=== PATIENT | female | born 1950 | race Caucasian/White ===

== ENCOUNTER 2024-03-22 08:31 | Outpatient (CLI) | payer OTHER, SELFPAY ==
--- NOTE | 2024-03-22 08:35 | CT_ITS ---
WS: [id number] LDCT LUNG CANCER SCREENING HISTORY: HX OF TOBACCO USE TECHNIQUE: Axial imaging performed from the apices to 1 cm below the costophrenic angles. Coronal and sagittal reformats are submitted with axial MIP series. All CT scans at [facility] use at least one of these dose optimization techniques: automated exposure control; mA and/or kV adjustment per patient size (includes targeted exams where dose is matched to clinical indication); or iterativ e reconstruction. DLP: 63.30 mGy.cm DIvol: Mean CTDIvol: 1.20 (mGy) COMPARISON: None available. Diagnostic quality: Mild breathing motion artifact. Lungs: Moderate centrilobular emphysema. Mild hazy attenuation throughout both lungs. Biapical pleura l thickening and scarring. Very small subpleural nodules and tags are identified. There are a few gra nulomata. Mild motion artifact is causing some distortion and compromise of the quality. Heart: Normal size heart. Mild increase in pericardial fat.. Other findings: Moderate atherosclerosis thoracic aorta. Small mediastinal and hilar lymph nodes. Sma ll hiatal hernia. Prior cholecystectomy. No adrenal mass. Advanced thoracic spondylosis. Age-indeterm inate compression deformities at T4, T11 and T12. CT/CT lung screening [id number] IMPRESSION: LUNG-RADS: 2-Benign Appearance or Behavior FOLLOW UP: 12 Month: Continue annual screening with LDCT OTHER FINDINGS (S MODIFIER): None.
== END 2024-03-22 08:32 | disposition home or self-care (01) ==
LOC: RAD 08:31
PROVIDERS: PCP Internal Medicine; Visit Provider Internal Medicine
DX: Z12.2 Encounter for screening for malignant neoplasm of respiratory organs (principal); Z87.891 Personal history of nicotine dependence; J43.2 Centrilobular emphysema; J98.4 Other disorders of lung; J84.10 Pulmonary fibrosis, unspecified; K44.9 Diaphragmatic hernia without obstruction or gangrene; M47.814 Spondylosis without myelopathy or radiculopathy, thoracic region; M43.8X4 Other specified deforming dorsopathies, thoracic region; Z98.890 Other specified postprocedural states
CPT/HCPCS: 71271

== ENCOUNTER → 2024-05-19 13:20 | Outpatient (BNVA) | payer MEDICARE, OTHER, SELFPAY | PROVIDERS: PCP Internal Medicine; Visit Provider Nurse Practitioner Family | DX: I10 Essential (primary) hypertension (principal); E55.9 Vitamin D deficiency, unspecified | CPT/HCPCS: 80053; 80061; 82306; 84443 ==

== ENCOUNTER → 2024-07-20 10:40 | Outpatient (BNVA) | payer MEDICARE, OTHER, SELFPAY | PROVIDERS: PCP Internal Medicine; Visit Provider Nurse Practitioner Family | DX: E03.9 Hypothyroidism, unspecified (principal) | CPT/HCPCS: 84443 ==

== ENCOUNTER → 2024-08-03 09:49 | Outpatient (BNVA) | payer MEDICARE, OTHER, SELFPAY | PROVIDERS: PCP Internal Medicine; Visit Provider Internal Medicine | DX: R07.9 Chest pain, unspecified (principal) | CPT/HCPCS: 93005; 99204 ==

== ENCOUNTER → 2024-09-09 10:49 | Outpatient (BNVA) | payer MEDICARE, OTHER, SELFPAY | PROVIDERS: PCP Nurse Practitioner Family; Visit Provider Nurse Practitioner Family | DX: I10 Essential (primary) hypertension (principal); E03.9 Hypothyroidism, unspecified | CPT/HCPCS: 84443 ==

== ENCOUNTER → 2024-12-22 08:05 | Outpatient (BNVA) | payer MEDICARE, OTHER, SELFPAY | PROVIDERS: PCP Nurse Practitioner Family; Visit Provider Nurse Practitioner Family | DX: I10 Essential (primary) hypertension (principal) | CPT/HCPCS: 80053; 80061; 84443 ==

== ENCOUNTER → 2025-02-01 14:10 | Outpatient (BNVA) | payer MEDICARE, OTHER, SELFPAY | PROVIDERS: PCP Nurse Practitioner Family; Visit Provider Internal Medicine | DX: I10 Essential (primary) hypertension (principal); E78.5 Hyperlipidemia, unspecified; F17.210 Nicotine dependence, cigarettes, uncomplicated; R06.02 Shortness of breath; R07.9 Chest pain, unspecified | CPT/HCPCS: 99214 ==

== ENCOUNTER → 2025-02-03 09:36 | Outpatient (BNVA) | payer MEDICARE, OTHER, SELFPAY | PROVIDERS: PCP Nurse Practitioner Family; Visit Provider Nurse Practitioner Family | DX: E03.9 Hypothyroidism, unspecified (principal) | CPT/HCPCS: 84443 ==

== ENCOUNTER 2025-02-04 10:06 | Outpatient (CLI) | payer MEDICARE, OTHER, SELFPAY ==
--- NOTE | 2025-02-04 10:10 | MM_ITS ---
WS: [id number] BILATERAL 3D TOMOSYNTHESIS DIGITAL SCREENING MAMMOGRAPHY WITH CAD CLINICAL INFORMATION: SCREENING HISTORY: Screening mammogram. No current complaints. COMPARISON: None available TECHNIQUE: Bilateral CC and MLO views. FINDINGS: Scattered fibroglandular densities bilaterally. No suspicious focal mass, asymmetry, calcifications, or architectural distortion. No evidence of malignancy. A few coarse benign calcifications. Vascular calcification. MM/MM scr tomosynthesis [id number] IMPRESSION: DENSITY: There are scattered areas of fibroglandular density. BI-RADS: 2 - Benign. FOLLOW UP: 1 Year Follow-up Recommend return to annual screening mammography.
== END 2025-02-04 10:07 | disposition home or self-care (01) ==
LOC: RAD 10:08
PROVIDERS: PCP Internal Medicine; Visit Provider Internal Medicine
DX: Z12.31 Encounter for screening mammogram for malignant neoplasm of breast (principal); R92.323 Mammographic fibroglandular density, bilateral breasts; R92.1 Mammographic calcification found on diagnostic imaging of breast
CPT/HCPCS: 77063; 77067

== ENCOUNTER 2025-03-14 14:05 | Outpatient (CLI) | payer MEDICARE, OTHER, SELFPAY ==
--- NOTE | 2025-03-14 15:00 | USCV_ITS ---
Saadia Cruz Age: 74 Gender: F : 1950 Exam Date: 03/14/2025 14:56 Ordering Phys: Ty Thakur M.D ([email or web address]) Technologist: MARY Exam Location: [facility] Indication: CP, SoB BP: 108 / 66 HR: 59 Rhythm: Sinus Technical Quality: Adequate MEASUREMENTS (Male / Female) Normal Values 2D ECHO LV Diastolic Diameter PLAX 5.2 cm 4.2 - 5.9 / 3.9 - 5.3 cm IVS Diastolic Thickness 0.8 cm 0.6 - 1.0 / 0.6 - 0.9 cm IVS Systolic Thickness 1.7 cm LVPW Diastolic Thickness 1.1 cm 0.6 - 1.0 / 0.6 - 0.9 cm LVPW Systolic Thickness 1.6 cm LVOT Diameter 2.1 cm LV Ejection Fraction 2D Teich 67.2 % LV Ejection Fraction MOD 4C 70.2 % LV Ejection Fraction MOD 2C 68.2 % LV Ejection Fraction 2C AL 69.3 % LA Diameter 2.9 cm RA Systolic Volume 4C AL 29.9 ml RA Systolic Volume 4C MOD 29.2 ml LA Sys Volume AL 32.3 cm cubed LA Sys Volume Index AL 17.4 cm cubed/m squared Aorta at Sinotubular Diameter 2.5 cm IVC Diameter 1.6 cm M-MODE LA Ao Ratio MM 1.1 AV Cusp Separation MM 1.2 cm DOPPLER AV Peak Velocity 186.0 cm/s LVOT Peak Velocity 107.0 cm/s AV Area Cont Eq vti 1.9 cm squared AV Area Cont Eq pk 1.9 cm squared MV Peak Velocity 107.0 cm/s MV Area PHT 2.8 cm squared Mitral E to A Ratio 0.9 TV Peak E Velocity 69.0 cm/s PV Peak Velocity 91.0 cm/s FINDINGS Left Ventricle Left ventricle is normal in size. LV systolic function is normal with EF of 60 to 65%. No regional wall abnormalities are seen. Grade 1 diastolic dysfunction. Right Ventricle Normal in size and function Right Atrium Normal in size Left Atrium Normal in size Mitral Valve Structurally normal mitral valve. Mild mitral regurgitation. Aortic Valve Aortic valve is thickened. Mild aortic stenosis aortic valve area 1.8 cm squared and mean gradient of 8 mmHg. Tricuspid Valve Mild tricuspid regurgitation. Insufficient TR jet to evaluate RVSP. Pulmonic Valve Not well visualized Pericardium Normal Aorta Normal in size IVC Apepars to be normal CONCLUSIONS LV systolic function is normal with EF of 60-65% Grade 1 diastolic dysfunction Mild mitral regurgitation Mild aortic stenosis Mild tricuspid regurgitation No comparison studies are available. Ty Thakur MD (Electronically Signed) Final Date: 18 March 2025 10:22 S
== END 2025-03-14 14:06 | disposition home or self-care (01) ==
LOC: RAD 14:06
PROVIDERS: PCP Internal Medicine; Visit Provider Internal Medicine
DX: R07.9 Chest pain, unspecified (principal); R06.02 Shortness of breath; R93.1 Abnormal findings on diagnostic imaging of heart and coronary circulation; I34.0 Nonrheumatic mitral (valve) insufficiency; I35.8 Other nonrheumatic aortic valve disorders; I35.0 Nonrheumatic aortic (valve) stenosis; I07.1 Rheumatic tricuspid insufficiency
CPT/HCPCS: 93306

== ENCOUNTER 2025-03-21 18:13 | Emergency (ER) | payer MEDICARE, OTHER, SELFPAY ==
--- OUTSIDE RECORDS SUMMARY | 2024-11-18 05:00 | XMS_ITS ---
Author Organization [facility] Address [address] [place] [address] Care Team Providers Care Supervisor Of Instruction Name Role Phone Seven Andujar Primary Care Provider REASON FOR VISIT 4 MONTH F/U Encounters Encounter Location Date Provider Diagnosis [facility] [address] [phone] 11/18/2024 Seven Andujar Plan Of Treatment Next Appt Details Provider Name:Seven Andujar, 06/03/2025 11:00:00 AM, [address], [phone], Progress Notes * TE BRAVODOB:1950 (74 yo F)Acc No.[id number]:11/18/2024 Progress Notes Patient: TE DE SANTIAGO Provider: Coleen Andujar MD :1950 A ge:73 Y S ex:Female Date:11/18/2024 Address:[address] [place] [address] MARJAN FELIZ [id number] Subjective: * Chief Complaints: * 4 MONTH F/U Care Plan Details* * Electronic signature of Benton Andujar MD on 03/21/2025 at 06:22 PM CDT Sign off status: Pending * Provider: Coleen Andujar MD Date: 11/18/2024 Generated for Miguel ng/Faxing/eTransmitting on: 03/21/2025 06:22 PM CDT
--- OUTSIDE RECORDS SUMMARY | 2024-11-19 05:00 | XMS_ITS ---
Author Organization [facility] Address [address] [place] [address] Care Team Providers Care Vp Data Name Role Phone Seven Andujar Primary Care Provider Allergies Allergen (clinical drug ingredient) Drug/Non Drug Allergy documented on EMR Reaction Allergy Type Onset Date Status Substance with sulfonamide structure and antibacterial mechanism of action (substance) Sulfa Antibiotics Unknown Drug Allergy Active REASON FOR VISIT 4 MONTH F/U Medications Medication SIG (Take, Route, Frequency, Duration) Notes Start Date End Date Status Rosuvastatin Calcium 10 MG Tablet 1 tablet Orally Once a day; Duration: 90 days Active Omeprazole 40 MG Capsule Delayed Release 1 capsule 30 minutes before morning meal Orally Once a day; Duration: 90 days Active Anoro Ellipta 62.5-25 MCG/ACT Aerosol Powder Breath Activated 1 puff Inhalation Once a day; Duration: 90 days 07/12/2024 07/07/2025 Not-Taking Levothyroxine Sodium 150 MCG Tablet 1 tablet in the morning on an empty stomach Orally Once a day; Duration: 90 days Active hydroCHLOROthiazide 12.5 MG Capsule 1 capsule in the morning Orally Once a day; Duration: 90 days Active traZODone HCl 100 MG Tablet 1 tablet at bedtime Orally Once a day; Duration: 90 days Not-Taking Magnesium Citrate 100 MG Tablet 4 tablets Orally daily Active Social History Tobacco Use: Social History Observation Description Date Details (start date - stop date) Current Smoker NA - NA Social History Depression Screening Social Info Question Answer Notes depression screening findings Findings Negative (0 -4) 07/12/24 PHQ-9 Little interest or p alicia in doing things Not at all Feeling down, depressed, or hopeless Not at all Trouble falling or staying asleep, or sleeping t oo much Not at all Feeling tired or having little energy Not at all Poor appetite or overeating Not at all Feeling bad about yourself, or that you are a failure, or have let yourself or your family down Not at all Trouble concentrating on thi ngs, such as reading the newspaper or watching television Not at all Moving or speaking so slowly that other people could have noticed. Or the opposite ? being so fidgety or restless that you have been moving around a lot more than usual Not at all Thoughts that you would be b alivia off , or of hurting yourself in some way Not at all Total Score 0 Tobacco Use: Social Info Question Answer Notes Tobacco Control (Standard) Tobacco use: Current smoker How often do you smoke cigarettes? Every day How many cigarettes a day do you smoke? 07-21 Section Notes: CIME Dep/tob 07/12/24 Encounters Encounter Location Date Provider Diagnosis [facility] [address] [place] [phone] 11/19/2024 Seven Andujar Plan Of Treatment Medication Medication Name Sig Start Date Stop Date Notes Rosuvastatin Calcium 10 MG Tablet 1 tablet Orally Once a day; Duration: 90 days Next Appt Details Provider Name:Seven Andujar, 06/03/2025 11:00:00 AM, [address] [place] [address], [phone], Progress Notes * TE BRAVO JayleenDOB:1950 (74 yo F)Acc No.[id number]:11/19/2024 Progress Notes Patient: TE DE SANTIAGO Provider: oCleen Andujar MD :1950 A ge:73 Y S ex:Female Date:11/19/2024 [phone] Subjective: * Chief Complaints: * 4 MONTH F/U * HPI: P atient Complaints: Patient here for follow up - feels good - moved from [place] and needs updated handicap placard for [place]. * Medical History: Thyroid problems Medical History Verified * Surgical History: carpal tunnel release both wrist left hip replacement right hip replacement back surgery left knee replacement right knee replacement Surgical History verified. * Hospitalization/Major Diagno stic Procedure: No Hospitalization Documented. Hospitalization Verified. * Family History: F ather: , heart. M other: , type II diabetes. F amily History Verified.. * Social History: T obacco Use: T obacco Control (Standard) T obacco use: C urrent smoker H ow often do you smoke cigarettes? E very day H ow many cigarettes a day do you smoke? 1 1-20 D epression Screening: P HQ-9 L ittle interest or pleasure in doing things?Not at all F eeling down, depressed, or hopeless N ot at all T rouble falling or staying asleep, or sleeping too much N ot at all F eeling tired or having little energy N ot at all P oor appetite or overeating N ot at all F eeling bad about yourself, or that you are a failure, or have let yourself or your family down N ot at all T rouble concentrating on things, such as reading the newspaper or watching television N ot at all M oving or speaking so slowly that other people could have noticed. Or the opposite ? being so fidgety or restless that you have been moving around a lot more than usual N ot at all T houghts that you would be better off , or of hurting yourself in some way N ot at all T otal Score 0 Depression screening findings F indings N egative (0-4) 07/12/24 S ocial History Verified. C MIKAEL Dep/tob 07/12/24. * Medications: T akingMagnesium Citrate 100 MG Tablet 4 tablets Orally daily Rosuvastatin Calcium 10 MG Tablet 1 tablet Orally Once a day hydroCHLOROthiazide 12.5 MG Capsule 1 capsule in the morning Orally Once a day Levothyroxine Sodium 150 MCG Tablet 1 tablet in the morning on an empty stomach Orally Once a day Omeprazole 40 MG Capsule Delayed Release 1 capsule 30 minutes before morning meal Orally Once a day Taking Magnesium Citrate 100 MG Tablet 4 tablets Orally daily Taking Rosuvastatin Calcium 10 MG Tablet 1 tablet Orally Once a day Taking hydroCHLOROthiazide 12.5 MG Capsule 1 capsule in the morning Orally Once a day Taking Levothyroxine Sodium 150 MCG Tablet 1 tablet in the morning on an empty stomach Orally Once a day Taking Omeprazole 40 MG Capsule Delayed Release 1 capsule 30 minutes before morning meal Orally Once a day Not-TakingtraZODone HCl 100 MG Tablet 1 tablet at bedtime Orally Once a day Anoro Ellipta 62.5-25 MCG/ACT Aerosol Powder Breath Activated 1 puff Inhalation Once a day , stop date 07/07/2025Medication List reviewed and reconciled with the patientNot-Taking traZODone HCl 100 MG Tablet 1 tablet at bedtime Orally Once a day Not-Taking Anoro Ellipta 62.5-25 MCG/ACT Aerosol Powder Breath Activated 1 puff Inhalation Once a day , stop date 07/07/2025Medication List reviewed and reconciled with the patient * Allergies: S ulfa AntibioticsyesAllergies Verified. Plan: * Treatment: * Preventive Medicine: Fall Risk Assessment: F all Risk Assessment Fall Risk Assessment N o falls in the past year None Screenings: B REAST CANCER SCREENING: Date of most recent screenin 04/12/2022 C ERVICAL CANCER SCREENING: Date of the last PAP Smear : H ysterectomy 40 years ago C OLORECTAL CANCER SCREENING: Date of last colonoscopy 0 01/18/2022 D EPRESSION SCREENING: Date of most recent screenin 09/11/2023 V ACCINATIONS: Influenza vaccinations: h ave been completed yearly Billing Information: * Procedure Codes: Care Plan Details* * Electronic signature of Benton Andujar MD on 03/21/2025 at 06:22 PM CDT Sign off status: Pending * Provider: Coleen Andujar MD Date: 0 11/19/2024 Generated for Miguel dejesus/Pato/Yulia on: 0 03/21/2025 06:22 PM CDT
--- NOTE | 2025-03-21 18:14 | XRR_ITS ---
PROCEDURE INFORMATION: Exam: XR Right Humerus Exam date and time: 03/21/2025 6:23 PM Age: 74 years old Clinical indication: Injury or trauma; Fall; Blunt trauma (contusions or hematomas); Arm, upper; Right TECHNIQUE: Imaging protocol: Radiologic exam of the right humerus. Views: 2 or more views. COMPARISON: CT lung screening [id number] 03/22/2024 8:49 AM FINDINGS: Bones/joints: There is diffuse osteopenia. There is a comminuted fracture through the proximal humerus with a dominant transverse component through the humeral neck. There appears to be mild anterior and medial displacement of the distal fracture fragment. There also appear to be subtle fracture lines extending into the humeral head, suboptimally evaluated on these radiographs. There are degenerative changes involving the acromioclavicular joint. Soft tissues: There is soft tissue edema within the upper arm XR/[place] [id number] IMPRESSION: Acute mildly displaced comminuted proximal humeral fracture with dominant transverse component through the humeral neck as described. Dedicated shoulder radiographs may be helpful for further evaluation.
--- OUTSIDE RECORDS SUMMARY | 2025-03-21 18:21 | XMS_ITS | Continuity of Care Document ---
Author Organization [facility]. If a dditional information is needed, contact Health Information Management at [phone] Address [address] [place] [address] Phone Care Team Providers Care Fashion Model Name Role Phone Unavailable Unavailable Unavailable Unavailable Unavailable Unavailable Unavailable Unavailable Unavailable Unavailable Unavailable Unavailable Unavailable Unavailable Unavailable Unavailable Unavailable Unavailable Problems Bronchospasm Onset:21-Nov-2019 Dyspnea Onset:21-Nov-2019 Fall on same level Onset:23-Aug-2018 Contusion of hip Onset:23-Aug-2018 Mental Status Cognitive function finding 21-Nov-2019 Allergies and Adverse Reactions Sulfa(Sulfonamide Antibiotic s)(Allergy) Onset: 20-Nov-2019 Reaction:HIVES, ITCHING Medications azithromycin 500 MG Oral Tablet;500 MILLIGRAM PO DAILY Start:22-Nov-2019 Comments:500 MG PO DAILY predniSONE 20 MG Oral Tablet;40 MILLIGRAM PO DAILY Start:22-Nov-2019 Comments:40 MG PO DAILY 12 HR guaiFENesin 1200 MG Extended Release Oral Tablet [Mucinex];1200 MILLIGRAM PO BID Start:22-Nov-2019 Comments:1200 MG PO BID VENTOLIN HFA;1 PUFF INH RTQ6 H PRN Start:22-Nov-2019 Comments:1 PUFF INH RTQ6H PRN As Needed for WHEEZING / SHORTNESS OF BREATH escitalopram 10 MG Oral Tablet;10 MILLIGRAM PO DAILY Start:23-Aug-2018 Comments:10 MG PO DAILY simvastatin 20 MG Oral Tablet;20 MILLIGRAM PO BEDTIME Start:23-Aug-2018 Comments:20 MG PO BEDTIME levothyroxine sodium 0.15 MG Oral Tablet [Levoxyl];150 MICROGRAM PO DAILY Start:23-Aug-2018 Comments:150 MCG PO DAILY escitalopram 10 MG Oral Tablet [Lexapro];10 MILLIGRAM ORAL DAILY Quantity:1 Vickie Wilma I DISC INSPECTOR Status:Discontinued Comments:[id number] Protonix;40 MILLIGRAM ORAL DAILY Quantity:1 Vickie Wilma I DISC INSPECTOR Status:Discontinued Comments:[id number] Administration Instructions:FORMULARY INTERCHANGE FOR ACIPHEX, CHLOE, NEXIUM, PREVACID,PRILOSEC, ZEGERIDSwallow whole, do not chew or crush 12 HR guaiFENesin 600 MG Extended Release Oral Tablet [Mucinex];1200 MILLIGRAM ORAL BID Quantity:2 Vickie Wilma I DISC INSPECTOR Status:Discontinued Comments:[id number] levothyroxine sodium 0.15 MG Oral Tablet [Synthroid];0.15 MILLIGRAM ORAL DAILY@0600 Quantity:1 Vickie Wilma I DISC INSPECTOR Status:Discontinued Comments:[id number] simvastatin 40 MG Oral Table t [Zocor];20 MILLIGRAM ORAL BEDTIME Quantity:1 Vickie Wilma I DISC INSPECTOR Status:Discontinued Comments:[id number] acetaminophen 325 MG Oral Tablet;650 MILLIGRAM ORAL Q4H PRN Quantity:2 Vickie Wilma I DISC INSPECTOR Status:Discontinued Comments:[id number] ondansetron 2 MG/ML Injectable Solution [Zofran];4 MILLIGRAM INTRAVEN. Q6H PRN Quantity:1 Gold Hensley MD Status:Discontinued Comments:[id number] Administration Instructions:FOR IVP*UNDILUTED OVER 2-5 MIN sodium chloride 9 MG/ML Injectable Solution Vickie Wilma I DISC INSPECTOR Status:Discontinued 250 ML sodium chloride 9 MG/ML Injection;[id number] Vickie Wilma I DISC INSPECTOR Status:Discontinued Comments:[id number] cefTRIAXone 1000 MG Injection;1 GRAM INTRAVEN. Q24H Quantity:1 Vickie Wilma I DISC INSPECTOR Status:Discontinued Comments:Provider Administration Instructions:FORMULARY INTERCHANGE FOR CLAFORANDilute vial with 10 mL Sterile Water for Injection. Withdrawcontents of vial and push over 3-5 minutes. Use immediatelyafter reconstitution. CHLORHEXIDINE BATH 1 EACH EACH;1 EACH TOPICAL ASDIR Quantity:1 FUNZA Status:Discontinued Comments:[id number] Administration Instructions:DAILY CHG BATH FOR ALL ADULT INPATIENTS WITH CENTRAL LINES(INCLUDING PICC LINES), DIALYSIS CATHETERS, MIDLINES, ORACCESSED PORTS. Not dispensed by Pharmacy [id number] 60 ACTUAT albutero l 0.09 MG/ACTUAT Metered Dose Inhaler [Ventolin];1 PUFF INHALATION THERAPY RTQ6H PRN Quantity:1 Vickie Wilma I DISC INSPECTOR Status:Discontinued Comments:[id number] Administration Instructions: For COVID-19 PUI (person under investigation) and/or aconfirmed case, store open inhalers in the patient's room anca locked cabinet. Dispose of inhaler in black bin. If black bin islocated outside of the patient's room, place the inhaler anca sealable plastic ziplock type bag and move to theappropriate black bin in its current location. DO NOT RETURN OPENED INHALERS TO PHARMACY. povidone-iodine 100 MG/ML Medicated Pad;1 EACH NASAL BID Quantity:1 FUNZA Status:Discontinued Comments:[id number] albuterol 0.833 MG/ML / ipratropium bromide 0.167 MG/ML Inhalation Solution;3 MILLILITER NEBULIZATION RTQ6H PRN Quantity:1 Vickie Wilma I DISC INSPECTOR Status:Discontinued Comments:[id number] Social History Smoking Status Smokes tobacco daily Recorded: 21-Nov-2019 Smokes tobacco daily Recorded: 23-Aug-2018
--- OUTSIDE RECORDS SUMMARY | 2025-03-21 18:21 | XMS_ITS | Continuity of Care Document ---
Author Name [facility] Organization [facility] Care Team Providers Care Maintenance Scheduler Name Role Phone [facility] Unavailable Unavailable Medications Combined list of outpatient medications from Department of Defense and Veterans Affairs facilities.Medications provided include 1) outpatient medications from the last 15 months, and 2) patient-reported medications. Medication Details Route Status Patient Instructions Prescription Expires Prescription Number Last Dispense Date Ordering Provider Order Date Order Qty Source albuterol 90 mcg inhaler [8.5g] See Instruct ry, 0, # 8 g, 1 total refill(s ), Hard Stop Complet ed 05/25/2024 4 2023 8.5 Ambulat ory Pharmac y fluticasone /umeclidini um/vilanter ol 100 mcg-62.5 mcg-25 mcg/inh inhalation powder INHALE 1 PUFF BY MOUTH AT THE SAME TIME EVERY DAY *RINSE AND SPIT AFTER USE*, # 60 EA, 2 total refill(s ), Acute Complet ed 05/27/2022 2 2021 60.0 Ambulat ory Pharmac y hydroCHLORO thiazide 12.5 mg capsule See Instruct ions, # 90 EA, 3 total refill(s ), Hard Stop Complet ed 11/12/2024 4 2024 90.0 Ambulat ory Pharmac y levothyroxi ne (Synthroid) 150 mcg tablet See Instruct ions, # 90 EA, 3 total refill(s ), Hard Stop Complet ed 10/12/2024 4 2024 90.0 Ambulat ory Pharmac y levothyroxi ne (Synthroid) 150 mcg tablet See Rx Instruct ions, Oral, # 90 EA, 3 total refill(s ), Hard Stop Oral (given by mouth) Complet ed 10/14/2023 3 2023 90.0 Ambulat ory Pharmac y levothyroxi ne [Mylan] 150 mcg tablet See Rx Instruct ions, # 90 EA, 1 total refill(s ), Acute Complet ed 08/27/2022 2 2021 90.0 Ambulat ory Pharmac y nystatin 585475 units/mL oral suspension See Rx Instruct ions, # 140 mL, 0 total refill(s ), Hard Stop Complet ed 09/30/2023 3 2023 140.0 Ambulat ory Pharmac y omeprazole 40 mg oral delayed release capsule TAKE ONE CAPSULE BY MOUTH EVERY MORNING WITH BREAKFAS T., # 90 EA, 3 total refill(s ), Acute Complet ed 10/28/20222022 90.0 Ambulat ory Pharmac y omeprazole 40 mg oral delayed release capsule TAKE ONE CAPSULE BY MOUTH EVERY DAY, # 90 EA, 3 total refill(s ), Acute Complet ed 11/04/20222022 90.0 Ambulat ory Pharmac y omeprazole DR 40 mg capsule 40 mg, Oral, Daily, # 90 EA, 3 total refill(s ), Hard Stop Oral (given by mouth) Complet ed 11/12/2023 4 2023 90.0 Ambulat ory Pharmac y omeprazole DR 40 mg capsule See dose instruct ions in comments , # 90 EA, 1 total refill(s ), Acute Complet ed 04/15/2023 2 2022 90.0 Ambulat ory Pharmac y omeprazole DR 40 mg capsule 40 mg, Oral, Daily, # 90 EA, 3 total refill(s ), Hard Stop Oral (given by mouth) Complet ed 11/30/2024 4 2024 90.0 Ambulat ory Pharmac y polyethylen e glycol 3350 oral powder for reconstitut ion DRINK 1 CAPFUL (17 GM) BY MOUTH DAILY. DISSOLVE IN WATER BEFORE TAKING, # 238 g, 1 total refill(s ), Acute Complet ed 10/28/2022 2 2022 238.0 Ambulat ory Pharmac y rosuvastati n 10 mg tablet See Instruct ions, # 90 EA, 3 total refill(s ), Hard Stop Complet ed 11/12/2024 4 2024 90.0 Ambulat ory Pharmac y semaglutide 1 mg/0.5 mL (1 mg dose) subcutaneou s solution INJECT 0.25 MG SUB-CUTA NEOUSLY EVERY WEEK, # 1 mL, 5 total refill(s ), Acute Complet ed 08/27/2022 2 2021 1.0 Ambulat ory Pharmac y simvastatin 20 mg tablet 20 mg, Oral, Daily, # 90 EA, 3 total refill(s ), Hard Stop Oral (given by mouth) Complet ed 09/11/2023 3 2023 90.0 Ambulat ory Pharmac y TRAZODONE HCL (TRAZODONE HCL), 100MG, TABLET, ORAL, APOTEX HEATHER, 100 ea. BOTTLE Cancele d [id number] : 2023 0 Pharmac y Data [employer]ilit y Trelegy Ellipta 100 mcg-62.5 mcg-25 mcg inh [60EA] See Rx Instruct ions, # 60 EA, 11 total refill(s ), Hard Stop Complet ed 06/27/2023 3 2022 60.0 Ambulat ory Pharmac y Trelegy Ellipta 100 mcg-62.5 mcg-25 mcg inh [60EA] See Rx Instruct ions, # 60 EA, 3 total refill(s ), Hard Stop Complet ed 06/25/2023 3 2022 60.0 Ambulat ory Pharmac y Allergies, Adverse Reactions, Alerts Combined list of allergies from Department of Defense and Veterans Affairs facilities. It does not include entries that were removed or entered in error. Substance Category Reaction Severity Reaction type Status Date Reported Comments Source Unable to obtain Drug allergy Active Ambulatory Pharmacy Immunizations Combined list of available immunizations from the Department of Defense and Veterans Affairs facilities. Immunization Series Date Given Administered By Site Reaction Lot Number CVX Code Drug Plate Worker Status Comments Source COVID-19, mRNA, LNP-S, PF, 30 mcg/0.3 mL dose, tari-sucrose 2021 [employer] [place] (PFR) Not Given COVID-19, mRNA, LNP-S, PF, 30 mcg/0.3 mL dose, tari-sucr ose DoD COVID-19, mRNA, LNP-S, PF, 30 mcg/0.3 mL dose 2020 OTAIGBE, [employer] (PFR) Not Given COVID-19, mRNA, LNP-S, PF, 30 mcg/0.3 mL dose DoD influenza, high-dose, quadrivalent 2020 OTAIGBE, () Not Given influenza , high-dose , quadrival ent DoD zoster recombinant 2020 OTAIGBE, () Not Given zoster recombina nt DoD zoster recombinant 2020 OTAIGBE, () Not Given zoster recombina nt DoD SARS-COV-2 (COVID-19) vaccine, mRNA, spike protein, LNP, preservative free, 30 mcg/0.3mL dose 1 2020 Unknown, Provider [id number] obopay, [employer] (PFR) [facility] ed SARS-COV- 2 (COVID-19 ) vaccine, mRNA, spike protein, LNP, preservat karely free, 30 mcg/0.3mL dose DoD SARS-COV-2 (COVID-19) vaccine, mRNA, spike protein, LNP, preservative free, 30 mcg/0.3mL dose 1 2020 Unknown, Provider [id number] obopay, [employer] (PFR) [facility] ed SARS-COV- 2 (COVID-19 ) vaccine, mRNA, spike protein, LNP, preservat karely free, 30 mcg/0.3mL dose DoD Procedures Combined list of: 1) Procedures from Department of Veterans Affairs facilities going back up to thelast 18 months, not all VA non-surgical procedures are included; 2) All procedures from the Department of Defense facilities. Procedure Procedure Type Code Date Perfomer Comments Sourc e No data available for this section Ambulatory P harmacy Social History Combined list of available smoking, tobacco, and other social history from Department of Defense and Veterans Affairs facilities. Social History Type Response Date Comment Sourc e This section is an empty social history section. DoD Assessment and Plan Combined list of future care activities from Department of Defense and Veterans Affairs facilities (e.g., assessment and plan notes, appointments, orders, and referrals). Additional future care activities may be listed in the Plan of Care section. Result Assessment and Plan Date Source Assessment and Plan No data available for this section 03/21/2025 Ambulatory Pharmacy Functional Status Combined list of recent functional and cognitive assessments recorded at Department of Defense and Veterans Affairs (VA).VA Functional [place] Measurement (FIM) Scale: 1 = Total Assistance (Subject = 0% +), 2 = Maximal Assistance (Subject = 25% +), 3 = Moderate Assistance (Subject = 50% +), 4 = Minimal Assistance (Subject = 75% +), 5 = Supervision, 6 = Modified [place] (Device), 7 = Complete [place] (Timely, Safely). Assessment Date/Time Source Assessment Type Assessment Skill Assessment Score Assessment Details No data available for this section
--- OUTSIDE RECORDS SUMMARY | 2025-03-21 18:22 | XMS_ITS | Patient Health Record ---
Author Organization [facility] Address [address] [place] [address] Care Team Providers Care [employer] Inspector Name Role Phone Seven Andujar Primary Care Provider [phone] Allergies Allergen (clinical drug ingredient) Drug/Non Drug Allergy documented on EMR Reaction Allergy Type Onset Date Status Substance with sulfonamide structure and antibacterial mechanism of action (substance) Sulfa Antibiotics Unknown Drug Allergy Active Reason For Referral No Information Medications Medication SIG (Take, Route, Frequency, Duration) Notes Start Date End Date Status traZODone HCl 100 MG Tablet 1 tablet at bedtime Orally Once a day; Duration: 90 days Not-Taking Anoro Ellipta 62.5-25 MCG/ACT Aerosol Powder Breath Activated 1 puff Inhalation Once a day; Duration: 90 days 07/12/2024 07/07/2025 Not-Taking Rosuvastatin Calcium 10 MG Tablet 1 tablet Orally Once a day; Duration: 90 days Active Omeprazole 40 MG Capsule Delayed Release 1 capsule 30 minutes before morning meal Orally Once a day; Duration: 90 days Active Levothyroxine Sodium 150 MCG Tablet 1 tablet in the morning on an empty stomach Orally Once a day; Duration: 90 days Active hydroCHLOROthiazide 12.5 MG Capsule 1 capsule in the morning Orally Once a day; Duration: 90 days Active Magnesium Citrate 100 MG Tablet 4 tablets Orally daily Active Social History Tobacco Use: Social History Observation Description Date Details (start date - stop date) Current Smoker NA - NA Social History Depression Screening Social Info Question Answer Notes depression screening findings Findings Negative (0 -4) 02/01/25 PHQ-9 Little interest or p alicia in [...] way Not at all Total Score 0 Drugs/Alcohol: Social Info Question Answer Notes Drugs Have you used drugs other than those for medical reasons in the past 12 months? No Drug/Alcohol: Social Info Question Answer Notes AUDIT-C (Standard) Did you have a drink containing alcohol in the past year? No Points 0 Interpretation Negative Tobacco Use: Social Info Question Answer Notes Tobacco Control (Standard) Tobacco use: Current smoker How often do you smoke cigarettes? Every day How many cigarettes a day do you smoke? 07-21 Section Notes: 07/12/24 CIME Dep/tob 07/12/24 07/12/24 CIME dep/Tob 02/01/25 Problems Problem Type SNOMED Code ICD Code Onset Dates Problem Status W/U Status Risk Notes Problem Essential hypertension (02029068) Essential hypertension (I10) Active confirmed Problem Hypothyroidism (89854433) Hypothyroidism (acquired) (E03.9) Active confirmed Problem Elevated fasting lipid profile (831568015415) Elevated lipids (E78.5) Active confirmed Problem Tobacco dependence (53087686) Tobacco dependence (F17.200) Active confirmed Problem Chronic obstructive pulmonary disease (04390299) COPD, moderate (J44.9) Active confirmed Vital Signs Heart Rate 60 /min 02/01/2025 Temperature 97.7 degrees Fahrenheit 02/01/2025 Height-cm 165.1 cm 02/01/2025 Oximetry 92 % 02/01/2025 Blood pressure diastolic 74 mm Hg 02/01/2025 Weight-kg 75.3 kg 02/01/2025 Height 65 in 02/01/2025 Blood pressure systolic 124 mm Hg 02/01/2025 Weight 166 lbs 02/01/2025 BMI 27.62 kg/m2 02/01/2025 Encounters Encounter Location Date Provider Diagnosis [facility] [address] [place] [address] 07/12/2024 Seven Andujar COPD, moderate J44.9 ; Essential hypertension I10 ; Elevated lipids E78.5 ; Hypothyroidism (acquired) E03.9 ; Tobacco dependence F17.200 and Depression screen Z13.31 [facility] [address] [place] [phone] 02/01/2025 Seven Andujar Essential hypertensi on I10 ; Elevated lipids E78.5 ; Hypothyroidism (acquired) E03.9 ; Tobacco dependence F17.200 and Depression screen Z13.31 [facility] [address] [place] [phone] 08/17/2024 Seven Andujar [facility] [address] [place] [phone] 11/19/2024 Seven Andujar Assessments Encounter Date Diagnosis (ICD Code) Assessment Notes Treatment Notes Treatment Clinical Notes Section Notes 07/12/2024 Essential hypertension (ICD-10 - I10) 07/12/2024 COPD, moderate (ICD-10 - J44.9) 02/01/2025 Essential hypertension (ICD-10 - I10) good control 02/01/2025 Elevated lipids (ICD-10 - E78.5) 07/12/2024 Elevated lipids (ICD-10 - E78.5) 07/12/2024 Hypothyroidism (acquired) (ICD-10 - E03.9) 02/01/2025 Hypothyroidism (acquired) (ICD-10 - E03.9) 07/12/2024 Tobacco dependence (ICD-10 - F17.200) 02/01/2025 Tobacco dependence (ICD-10 - F17.200) I spent 3 minutes on tobacco cessation counseling. Patient is not willing to attempt cessation. I will continue to pet adoption counselor and educate patient in future appointments about the harm and risks of tobacco abuse. I have discussed different medication options with patient today including chantix, wellbutrin, patches, gum and the process of slowly cutting back on nicotine.I spent 3 minutes on tobacco cessation counseling. Patient is not willing to attempt cessation. I will continue to pet adoption counselor and educate patient in future appointments about the harm and risks of tobacco abuse. I have discussed different medication options with patient today including chantix, wellbutrin, patches, gum and the process of slowly cutting back on nicotine. 02/01/2025 Depression screen (ICD-10 - Z13.31) 07/12/2024 Depression screen (ICD-10 - Z13.31) Plan Of Treatment Next Appt Details Provider Name:Seven Andujar, 06/03/2025 11:00:00 AM, [address] [place] [address], [phone], Insurance Providers Payer Name Payer Address Payer Phone Subscriber Number Group Number Insured Name Patient Relationship to Insured Coverage Start Date Coverage End Date [facility] [address] [place] [phone] [id number] Self - patient is the insured Medical (General) History Medical History History ICD Code thyroid problems Surgical History Surgery Date(Month/Year) carpal tunnel release both wrist left hip replacement right hip replacement back surgery left knee replacement right knee replacement
--- NOTE | 2025-03-21 18:23 | CTR_ITS ---
PROCEDURE INFORMATION: Exam: CT Head Without Contrast Exam date and time: 03/21/2025 6:40 PM Age: 74 years old Clinical indication: Injury or trauma; Fall; Blunt trauma (contusions or hematomas); Without loss of consciousness TECHNIQUE: Imaging protocol: Computed tomography of the head without contrast. Radiation optimization: All CT scans at this facility use at least one of these dose optimization techniques: automated exposure control; mA and/or kV adjustment per patient size (includes targeted exams where dose is matched to clinical indication); or iterative reconstruction. COMPARISON: No relevant prior studies available. RADIATION DOSE METRICS: Total DLP (mGy-cm): 1195.7 FINDINGS: Brain: There is enlargement of the ventricular system and cortical sulci compatible with diffuse cerebral atrophy, age-related.There is patchy hypoattenuation in the deep white matter most suggestive of chronic small vessel ischemic change in a patient this age. No acute intracranial hemorrhage or significant mass effect is seen. Cerebral ventricles: Normal in size, for age, and midline in position. Paranasal sinuses: Visualized sinuses are clear. No air fluid levels. Mastoid air cells: Visualized mastoid air cells are well aerated. Bones: Intact. No acute fracture detected. Soft tissues: Unremarkable. Vasculature: There is atherosclerotic calcification of the internal carotid arteries and distal left vertebral artery at the skull base. CT/CT head wo con* [id number] IMPRESSION: No acute intracranial hemorrhage or significant mass effect seen.
[2025-03-21 18:28] VITALS: BP 154/57; PULSE 67; RESP 18; TEMP 37.1; O2SAT 92
--- NOTE | 2025-03-21 18:30 | CTR_ITS ---
PROCEDURE INFORMATION: Exam: CT Cervical Spine Without Contrast Exam date and time: 03/21/2025 6:40 PM Age: 74 years old Clinical indication: Injury or trauma; Fall; Blunt trauma TECHNIQUE: Imaging protocol: Computed tomography of the cervical spine without contrast. Radiation optimization: All CT scans at this facility use at least one of these dose optimization techniques: automated exposure control; mA and/or kV adjustment per patient size (includes targeted exams where dose is matched to clinical indication); or iterative reconstruction. COMPARISON: CT lung screening [id number] 03/22/2024 8:49 AM RADIATION DOSE METRICS: Total DLP (mGy-cm): 181.3 FINDINGS: Bones/joints: There is straightening of the normal cervical lordosis. No significant subluxation. There are postsurgical changes from C4 through C7 with anterior plate fixation and disc spacers in place. No acute fracture is detected. C2-C3: Tiny posterior spurs. Bilateral uncovertebral hypertrophy, right greater than left, and severe right-sided and moderate left-sided facet joint arthropathy results in severe right-sided and [id number] left-sided neural foraminal stenosis. No significant central canal stenosis. C3-C4: Posterior spurs with severe bilateral uncovertebral hypertrophy and facet joint arthropathy. Findings appear to result in mild central canal stenosis and severe bilateral neural foraminal stenosis. C4-C5: Fusion level. Posterior osteophytic ridging. Bilateral uncovertebral hypertrophy and facet joint arthropathy. Findings result in moderate central canal stenosis with severe right-sided and moderate left-sided neural foraminal stenosis. C5-C6: Fusion level. Mild posterior osteophytic ridging. Moderate bilateral uncovertebral hypertrophy. Findings result in very mild central canal narrowing and moderate bilateral neural foraminal stenosis. C6-C7: Fusion level. Posterior osteophytic ridging. Bilateral uncovertebral hypertrophy and mild facet joint arthropathy. Findings result in mild central canal stenosis with very mild right-sided and moderate left-sided neural foraminal stenosis. C7-T1: Mild decrease in disc height with small anterior and posterior spurs. No significant central canal or neural foraminal stenosis. Lungs: There are emphysematous changes within the visualized upper lung shaw. Soft tissues: Unremarkable. CT/CT cervical spin wo con* [id number] IMPRESSION: 1. No acute cervical spine fracture. 2. Straightening of the normal cervical lordosis. 3. Status post ACDF from C4 through C7. 4. Degenerative disc disease and spondylosis as described in detail above. 5. COPD.
[2025-03-21 18:31] VITALS: BP 140/56; PULSE 68; O2SAT 94
--- NOTE | 2025-03-21 18:48 | W.ED.EXTPRO ---
HPI - Extremity Problem General: Chief complaint: Extremity Injury, Upper Stated complaint: Fall Time Seen by Provider: 03/21/25 18:20 History of Present Illness: 74-year-old female presents emergency room after a mechanical ground-level fall at home. She fell on her right side is complaining of right upper arm pain. Patient states she also hit her head when she fell hit the side of her head she has no swelling in the laceration she did get very nauseous but never had any loss consciousness she has mild neck pain as well no radiation of pain into her arms although is difficult for her to assess because of the severe pain in her right upper arm. Associated symptoms: Deny chest pain, fever(s) or rash Related Data Home Medications ?Medication ?Instructions ?Recorded ?Confirmed hydrochlorothiazide 12.5 mg capsule mg PO 05/19/24 03/30/25 magnesium 250 mg tablet 250 mg PO DAILY 05/19/24 03/30/25 rosuvastatin 10 mg tablet mg PO 05/19/24 03/30/25 omeprazole magnesium 20 mg 40 mg PO DAILY 08/03/24 03/30/25 tablet,delayed release (Prilosec OTC) Previous Rx's ?Medication ?Instructions ?Recorded levothyroxine 125 mcg capsule 125 mcg PO DAILY #90 caps 07/21/24 hydrocodone 5 mg-acetaminophen 325 1 tab PO Q6H PRN pain #15 tabs 03/21/25 mg tablet levothyroxine 100 mcg tablet See Rx Instructions .Route 03/21/25 .COMPLEX #90 tabs Cuff and Collar Shoulder Sling #1 ea 03/30/25 Allergies Allergy/AdvReac Type Severity Reaction Status Date / Time Sulfa (Sulfonamide Allergy Unknown Verified 03/30/25 11:03 Antibiotics) Review of Systems Const: Denies: fever(s) or chills Card: Denies: chest pain Resp: Denies: dyspnea GI: Denies: abdominal pain : Denies: dysuria, urinary frequency or urinary urgency Musc: Reports: extremity pain and extremity swelling; Denies: neck pain or back pain Skin/Breast: Denies: rash PFSH ED PFSH: Medical History Hypothyroidism Hypertension GERD (gastroesophageal reflux disease) Insomnia Surgical History History of back surgery History of carpal tunnel release of both wrists History of hysterectomy History of knee replacement procedure of right knee History of knee replacement procedure of left knee History of hip replacement, total History of neck surgery Family History Mother Diabetes mellitus type 1 Other Heart disease Social History Smoking and tobacco/nicotine status: current every day tobacco/nicotine user cigarettes Alcohol intake: never Substance/Drug Use: never Adopted: No Caregiver/support person: No Lives independently: No Current occupational status: retired Do you think of yourself as: Straight/Heterosexual Current gender identity: Female Physical Exam Const: GENERAL APPEARANCE: cooperative ORIENTATION/CONSCIOUSNESS: Yes awake, Yes oriented to person, Yes oriented to place and Yes oriented to time HENMT: COMMON NORMALS: normocephalic, atraumatic and hearing grossly normal bilaterally HEAD & SCALP: normocephalic and atraumatic Resp: COMMON NORMALS: normal respiratory effort, No retractions, No use of accessory muscles and clear to auscultation bilaterally AUSCULTATION: clear to auscultation bilaterally Cardio: COMMON NORMALS: regular rate, regular rhythm and No murmurs present (Cardio) RATE: regular rate RHYTHM: regular rhythm GI: COMMON NORMALS: Soft to palpation and No hepatosplenomegaly present AUSCULTATION: Yes normoactive bowel sounds PALPATION: Yes Soft to palpation, No Tenderness to palpation present (GI), No Guarding due to palpation present (GI) and Yes No hepatosplenomegaly present Extremity: COMMON NORMALS: normal to inspection, capillary refill normal, no clubbing, cyanosis or edema, no calf tenderness and no pedal edema OTHER: Right proximal humerus pain deformity and swelling neurovascularly the right upper extremity is intact Neuro: SENSORIUM/ORIENTATION: Yes oriented to person, Yes oriented to place and Yes oriented to time Skin: COMMON NORMALS: no rashes or lesions noted GENERAL SKIN EXAM: no rashes or lesions noted Course Vital Signs: Vital signs: Vital Signs Temperature 98.7 F 03/21/25 18:28 Pulse Rate 63 03/21/25 21:06 Respiratory Rate 16 03/21/25 21:06 Blood Pressure 142/65 03/21/25 21:06 Pulse Oximetry 98 03/21/25 21:06 Oxygen Delivery Me thod Room Air 03/21/25 18:31 MDM - Extremity (Nontraumatic) Medical Decision Making Proximal humerus fracture placed in sling refer to Ortho pain medications given CT head unremarkable. Medical Records I reviewed the patient's medical records. Lab Data I reviewed the patient's lab results. Radiology Impressions Humerus X-Ray 03/21/25 18:14 IMPRESSION: Acute mildly displaced comminuted proximal humeral fracture with dominant transverse component through the humeral neck as described. Dedicated shoulder radiographs may be helpful for further evaluation. Head CT 03/21/25 18:23 IMPRESSION: No acute intracranial hemorrhage or significant mass effect seen. Cervical Spine CT 03/21/25 18:30 IMPRESSION: 1. No acute cervical spine fracture. 2. Straightening of the normal cervical lordosis. 3. Status post ACDF from C4 through C7. 4. Degenerative disc disease and spondylosis as described in detail above. 5. COPD. Humerus CT 03/21/25 19:09 IMPRESSION: 1. Acute mildly comminuted transverse fracture through the proximal humeral diaphysis/surgical neck with mild displacement and angulation as described above. 2. Findings suggesting an old healed humeral head fracture and possible old nonunited posterior osseous glenoid fracture. 3. Moderate to severe osteoarthritis involving the glenohumeral and acromioclavicular joints. All radiology interpretation(s) finalized by discharge Discharge Plan Discharge Patient Disposition: Home Clinical Impression: Fracture of humerus Condition: Stable Prescriptions: New hydrocodone-acetaminophen 5-325 mg tablet 1 tab PO Q6H PRN (Reason: pain) Qty: 15 0RF No Action rosuvastatin 10 mg tablet PO hydrochlorothiazide 12.5 mg capsule PO magnesium 250 mg tablet 250 mg PO DAILY omeprazole magnesium [Prilosec OTC] 20 mg tablet,delayed release (DR/EC) 40 mg PO DAILY (DME) Cuff and Collar Shoulder Sling See Rx Instructions .Route .MEDSUPPLY Qty: 1 0RF Rx Instructions: As directed levothyroxine 125 mcg capsule 125 mcg PO DAILY Qty: 90 0RF levothyroxine 100 mcg tablet See Rx Instructions .ROUTE .COMPLEX Qty: 90 0RF Dose Instruction: TAKE 1 TABLET BY MOUTH DAILY Rx Instructions: TAKE 1 TABLET BY MOUTH DAILY Discharge Orders: Discharge ED (Routine); Ordered 03/21/25 Ordered By: Hardik Centeno Referrals: Timothy Andujar MD [Primary Care Provider, Internal Medicine] Patient Instructions: Opioid Safety, Pain Management, Patient Portal & [facility] Instructions Activity Restrictions/Additional Instructions: Thank you for choosing [facility] for your healthcare needs today. It is very important that you follow up as instructed or that you return to the Emergency Department should you have concerns or if your condition changes or worsens in any way. You are seen in the emergency room after a fall CT of your head and neck were normal. X-ray and CT of your right arm shows a proximal humerus fracture. These usually do not require surgery and allowed to heal in place while in the sling. Will discharge you home rn case management will contact you to make arrangements for follow-up with the orthopedic clinic you were given pain medications to use at home. You can apply ice as needed to the upper arm. Print Language: Upper Sorbian Coding Level of Care Code ED Assistance Representative for Mago Mabry
--- NOTE | 2025-03-21 19:09 | CTR_ITS ---
PROCEDURE INFORMATION: Exam: CT Right Upper Extremity Without Contrast, Upper Arm Exam date and time: 03/21/2025 7:24 PM Age: 74 years old Clinical indication: Injury or trauma; Fall; Blunt trauma (contusions or hematomas); Arm, upper; Right TECHNIQUE: Imaging protocol: Computed tomography of the right upper extremity without contrast. Exam focused on the upper arm. Radiation optimization: All CT scans at this facility use at least one of these dose optimization techniques: automated exposure control; mA and/or kV adjustment per patient size (includes targeted exams where dose is matched to clinical indication); or iterative reconstruction. COMPARISON: CR (CHEST, ) 03/21/2025 6:23 PM RADIATION DOSE METRICS: Total DLP (mGy-cm): 608.11 FINDINGS: Bones/joints: There is an acute mildly comminuted transverse fracture through the surgical neck/ proximal humeral diaphysis with medial and anterior displacement as well as dorsal and valgus angulation of the distal fracture fragment. There is bony remodeling of the humeral head which appears to be related to an old healed fracture. There is moderate to severe narrowing of the glenohumeral joint with subchondral sclerosis and marginal spurs. A lucency through the posterior osseous glenoid could be related to a small old nonunited fracture. There are moderate to severe degenerative changes involving the acromioclavicular joint. Soft tissues: There is soft tissue edema surrounding the shoulder and proximal upper arm. There appears to be joint effusion/hemarthrosis. CT/CT humerus RT wo con* [id number] IMPRESSION: 1. Acute mildly comminuted transverse fracture through the proximal humeral diaphysis/surgical neck with mild displacement and angulation as described above. 2. Findings suggesting an old healed humeral head fracture and possible old nonunited posterior osseous glenoid fracture. 3. Moderate to severe osteoarthritis involving the glenohumeral and acromioclavicular joints.
--- NOTE | 2025-03-21 20:37 | PC.NURSE ---
right arm placed in sling. patient tolerated well.
[2025-03-21] MEDS: HYDROcodone-acetaminophen 5-325 mg Tablet 2 TAB PO (20:59)
[2025-03-21 21:06] VITALS: BP 142/65; PULSE 63; RESP 16; O2SAT 98
== END 2025-03-21 21:09 | disposition home or self-care (01) ==
PROVIDERS: Emergency Provider Family Medicine; PCP Internal Medicine
DX: S42.201A Unspecified fracture of upper end of right humerus, initial encounter for closed fracture (principal); W18.30XA Fall on same level, unspecified, initial encounter
CPT/HCPCS: 70450; 72125; 73060; 73200; 99284; J9999

== ENCOUNTER → 2025-03-30 10:47 | Outpatient (BNVA) | payer MEDICARE, OTHER, SELFPAY | PROVIDERS: PCP Internal Medicine; Visit Provider Student in an Organized Health Care Education/Training Program | DX: S42.302A Unspecified fracture of shaft of humerus, left arm, initial encounter for closed fracture (principal); W19.XXXA Unspecified fall, initial encounter | CPT/HCPCS: 23600; 73060; 99204 ==

== ENCOUNTER → 2025-04-13 15:07 | Outpatient (BNVA) | payer MEDICARE, OTHER, SELFPAY | PROVIDERS: PCP Internal Medicine; Visit Provider Student in an Organized Health Care Education/Training Program | DX: S42.201A Unspecified fracture of upper end of right humerus, initial encounter for closed fracture (principal); X58.XXXA Exposure to other specified factors, initial encounter | CPT/HCPCS: 73060; 99213 ==

== ENCOUNTER → 2025-05-11 13:13 | Outpatient (BNVA) | payer MEDICARE, OTHER, SELFPAY | PROVIDERS: PCP Internal Medicine; Visit Provider Student in an Organized Health Care Education/Training Program | DX: S42.201A Unspecified fracture of upper end of right humerus, initial encounter for closed fracture (principal); X58.XXXA Exposure to other specified factors, initial encounter | CPT/HCPCS: 73060; 99213 ==

== ENCOUNTER → 2025-05-25 13:00 | Outpatient (BNVA) | payer MEDICARE, OTHER, SELFPAY | PROVIDERS: PCP Internal Medicine; Visit Provider Student in an Organized Health Care Education/Training Program | DX: S42.201A Unspecified fracture of upper end of right humerus, initial encounter for closed fracture (principal); X58.XXXA Exposure to other specified factors, initial encounter | CPT/HCPCS: 73060; 99213 ==

== ENCOUNTER 2025-06-06 12:40 | Outpatient (RCR) | payer MEDICARE, OTHER, SELFPAY | END 2025-07-01 23:59 | disposition home or self-care (01) | LOC: SPT 12:40 | PROVIDERS: PCP Internal Medicine; Visit Provider Student in an Organized Health Care Education/Training Program | DX: S42.201D Unspecified fracture of upper end of right humerus, subsequent encounter for fracture with routine healing (principal); X58.XXXD Exposure to other specified factors, subsequent encounter | CPT/HCPCS: 97110; 97161 ==

== ENCOUNTER 2025-07-02 05:00 | Outpatient (RCR) | payer MEDICARE, OTHER, SELFPAY | END 2025-07-26 12:46 | disposition home or self-care (01) | LOC: SPT 05:00 | PROVIDERS: PCP Internal Medicine; Visit Provider Student in an Organized Health Care Education/Training Program | DX: S42.201D Unspecified fracture of upper end of right humerus, subsequent encounter for fracture with routine healing (principal); X58.XXXD Exposure to other specified factors, subsequent encounter | CPT/HCPCS: 97110 ==

== ENCOUNTER → 2025-07-20 10:53 | Outpatient (BNVA) | payer MEDICARE, OTHER, SELFPAY | PROVIDERS: PCP Internal Medicine; Visit Provider Student in an Organized Health Care Education/Training Program | DX: S42.201A Unspecified fracture of upper end of right humerus, initial encounter for closed fracture (principal); X58.XXXA Exposure to other specified factors, initial encounter | CPT/HCPCS: 73060; 99213 ==

== ENCOUNTER → 2025-08-02 13:54 | Outpatient (BNVA) | payer MEDICARE, OTHER, SELFPAY | PROVIDERS: PCP Internal Medicine; Visit Provider Internal Medicine | DX: I10 Essential (primary) hypertension (principal); I35.0 Nonrheumatic aortic (valve) stenosis; F17.200 Nicotine dependence, unspecified, uncomplicated | CPT/HCPCS: 99214 ==

== ENCOUNTER → 2025-08-04 14:27 | Outpatient (BNVA) | payer MEDICARE, OTHER, SELFPAY | PROVIDERS: PCP Internal Medicine; Visit Provider Orthopaedic Surgery | DX: S49.90XA Unspecified injury of shoulder and upper arm, unspecified arm, initial encounter (principal); X58.XXXA Exposure to other specified factors, initial encounter | CPT/HCPCS: 99203; 99213 ==

== ENCOUNTER → 2025-08-08 11:00 | Outpatient (BNVA) | payer MEDICARE, OTHER, SELFPAY | PROVIDERS: PCP Internal Medicine; Visit Provider Nurse Practitioner Family | DX: I10 Essential (primary) hypertension (principal); R53.83 Other fatigue | CPT/HCPCS: 80053; 84443; 85025 ==